=== PATIENT | female | born 1995 | race Caucasian/White ===

== ENCOUNTER 2022-11-24 19:56 | Outpatient (REF) | payer OTHER, SELFPAY ==
[2022-11-30 10:09] LABS: Age Gdln ACOG Testing Note (.); IGP, rfx Aptima HPV ASCU Note (.)
== END 2022-11-24 19:57 | disposition home or self-care (01) ==
LOC: LAB 19:56
PROVIDERS: Visit Provider Obstetrics & Gynecology
DX: Z01.419 Encounter for gynecological examination (general) (routine) without abnormal findings (principal)
CPT/HCPCS: G0145

== ENCOUNTER 2022-12-07 13:20 | Outpatient (OUT) | payer OTHER, SELFPAY | END 2022-12-07 13:21 | disposition home or self-care (01) | LOC: PST 13:23 | PROVIDERS: Visit Provider Obstetrics & Gynecology | DX: Z01.818 Encounter for other preprocedural examination (principal); Z30.2 Encounter for sterilization ==

== ENCOUNTER 2022-12-09 08:33 | Day surgery (SDC) | payer OTHER, SELFPAY ==
[2022-12-07 13:51] VITALS: BP 136/91; PULSE 69; RESP 16; TEMP 36.6; O2SAT 100; BMI 41.7
[2022-12-09] VITALS (10 sets, daily range): BP systolic 122–152; BP diastolic 71–96; PULSE 54–86; RESP 12–24; TEMP 36.3–36.5; O2SAT 98–100; BMI 41.5
[2022-12-09 08:52] LABS: Basophils Percent Auto 0.4 % (0.2-2.0); Eosinophils Absolute Auto 0.1 10^3/uL (0.0-0.7); Eosinophils Percent Auto 1.9 % (0.9-7.0); Hematocrit 42.2 % (36.0-48.0); Hemoglobin 14.7 g/dL (12.0-16.0); Immature Granulocytes Abs Auto 0.02 10^3/uL (0.00-0.03); Immature Granulocytes Pct Auto 0.3 % (0.0-0.5); Lymphocytes Absolute Auto 1.1 10^3/uL (1.2-3.8); Mean Corpuscular HGB Conc 34.8 g/dL (29.9-35.2); Mean Corpuscular Hemoglobin 30.1 pg (26.7-34.0); Mean Corpuscular Volume 86.3 fL (81.0-99.0); Mean Platelet Volume 9.7 fL (9.5-13.5); Monocytes Absolute Auto 0.6 10^3/uL (0.3-0.8); Monocytes Percent Auto 9.1 % (1.7-12.0); Neutrophils Absolute Auto 4.9 10^3/uL (1.4-6.5); Neutrophils Percent Auto 72.3 % (43.0-75.0); Platelet Count 275 10^3/uL (150-450); Red Blood Count 4.89 10^6/uL (4.20-5.40); Red Cell Distribution Width 12.8 % (11.0-15.0); White Blood Count 6.8 10^3/uL (4.0-11.0)
[2022-12-09] MEDS: LACTATED RINGER'S SOLUTION 1,000 ML 50 ML IV (09:01)
[2022-12-09 09:06] LABS: HCG Quantitative <1 mIU/mL
[2022-12-09] MEDS: LACTATED RINGER'S SOLUTION 1,000 ML 1000 ML IV (11:03)
--- NOTE | 2022-12-09 12:23 | PM.ONB ---
Brief Operative Note Date of procedure: 12/09/22 Pre-op diagnosis: menorrhagia, desires permanent sterilization Post-op diagnosis: same as pre-op Procedure: NAME OF PROCEDURE: robotic assisted Laparoscopic bilateral salpingectomy, with Brandi endometrial ablation with hysteroscopy lysis of adhesions from posterior culdesac PROCEDURE: The patient was taken back to the OR where she was prepped and draped in the normal sterile fashion after being placed in the dorsal lithotomy position, after being placed under general anesthesia without difficulty. a weighted speculum was then placed into the vagina. Pap and endometrial bx were performed without difficultyThe anterior lip was grasped with a single tooth tenaculum. The patient was then sounded to approximatley 9cm. The patient was gently sounded using Hegar dilators and the hysteroscope was passed through the cervix into the uterus where both ostia were seen. No gross evidence of polyps, fibroids or malignancy. The cervical length was noted to be 4cm. The Brandi ablation apparatus was set to approximately 5cm in length. This was placed in through the cervix and into the uterus. After the seal was tested, at that time the total ablation of 120 seconds was performed with the Brandi without difficulty. All instruments were removed from the vagina. A wet sponge stick was placed into the patient's vagina. Attention was then turned to the patient's abdomen, where a scalpel was used to make a small infraumbilical incision. The S retractors were then used to dissect the underlying layers until the fascia could be seen. The fascia was then grasped with Radha clamps and tented up. A knife was then used to make a small incision to the fascia. The muscle was identified, at that time two sutures of #0 Vicryl on a GI needlewas then used and placed through the fascia. The peritoneum was then identified and entered bluntly. The 10-4 Lei was then placed into the patient's abdomen. This was confirmed with direct visualization of the bowel, using the laparoscope. The patient's abdomen was then insufflated using approximately 4 liters of CO2 gas. Survey of the patient's abdomen demonstrated normal appearing ovaries, uterus and tubes. A second and third lateral robotic ports, which was 8mm in size, was then placed laterally after incision was made in the skin under direct visualization. the robotic arms were engaged. The patient's tube on the patient's right side was identified. The tube was then tented up using a grasper. The ligasure was used to transect and coagulate the mesosalpingx from the fimbriated end to the insertion at the uterus, the tube was amputated and removed in its entirety.? Excellent hemostasis was noted. ?This was performed on the contralateral sideas well. The lateral ports were then moved under direct visualization with excellent hemostasis. The abdomen was deinsufflated. All instruments were removed from the patient's abdomen. The fascia was closed using the #0 Vicryl on GI needle. The skin was closed using 4-0 Vicryl subcuticularly. All instruments were removed from the patient's vagina as well. The patient was taken out of the dorsal lithotomy position and placed in the supine position and taken to recovery in stable condition. Sponge, lap and needle counts were correct x2. ???please note lysis of adhesions of posterior culdesac using vessel sealer Anesthesia: JENNIE Surgeon: [employer] Professional: Mari Kumar Estimated blood loss (mL): 5 Pathology: other (bilateral tubes) Condition: stable Disposition: PACU
--- NOTE | 2022-12-09 13:40 | PC.NURSE ---
Patient drank water and urinated. Tolerated well.
== END 2022-12-09 13:18 | disposition home or self-care (01) ==
PROVIDERS: Visit Provider Obstetrics & Gynecology
PROC: (CPT 840; principal; 2022-12-09 10:20)
PROC: (CPT 840; 2022-12-09 10:20)
DX: Z30.2 Encounter for sterilization (principal); N92.0 Excessive and frequent menstruation with regular cycle; N94.6 Dysmenorrhea, unspecified; N94.10 Unspecified dyspareunia; E28.2 Polycystic ovarian syndrome; N93.9 Abnormal uterine and vaginal bleeding, unspecified; R10.2 Pelvic and perineal pain
CPT/HCPCS: 58563; 58661; 36415; 84702; 85025; 88302; J2704